=== PATIENT | male | born 1980 | race Caucasian/White ===

== ENCOUNTER 2018-05-12 16:28 | Emergency (ER) | payer MEDICAID ==
[2018-05-12] MEDS: IBUPROFEN 600 MG TAB PO (18:38)
== END 2018-05-12 19:43 | disposition home or self-care (01) ==
LOC: FTE 16:28
DX: M79.605 Pain in left leg (principal); I80.02 Phlebitis and thrombophlebitis of superficial vessels of left lower extremity; R40.2412 Glasgow coma scale score 13-15, at arrival to emergency department; R06.89 Other abnormalities of breathing
CPT/HCPCS: 71046; 93971; 99284-25